=== PATIENT | female | born 1970 | race Caucasian/White ===

== ENCOUNTER → 2025-03-01 07:44 | Outpatient (REF) | payer BC, SELFPAY ==
[2025-03-01 08:42] LABS: Hematocrit 43.9 % (37.0-47.0); Hemoglobin 13.7 g/dL (12.0-16.0); Mean Corp Hgb Conc. 31.2 g/dL (33.0-37.0); Mean Corpuscular Volume 90.3 fL (81.0-99.0); Nucleated Red Blood Cells % 0 %; Platelet Count 249 10^3/uL (130-400); Red Cell Dist. Width 12.8 % (11.5-14.5)
[2025-03-01 09:01] LABS: ALT (SGPT) 26 U/L (0-35); AST (SGOT) 23 U/L (14-36); Albumin 4.5 g/dl (3.5-5.0); Alkaline Phosphatase 93 U/L (38-126); Blood Urea Nitrogen 16 mg/dl (7-17); Calcium 9.5 mg/dl (8.4-10.2); Carbon Dioxide 30 mmol/L (22-30); Chloride 103 mmol/L (98-107); Glucose 93 mg/dl (70-99); HDL Cholesterol 55 mg/dl; LDL Cholesterol, Calculated 163 mg/dl; Potassium 4.4 mmol/L (3.5-5.1); Sodium 137 mmol/L (135-145); Total Protein 7.7 g/dl (6.3-8.2); Very Low Density Lipoprotein 49 mg/dl (0-30); eGFR > 60.00
== END ==
LOC: REG 07:44
PROVIDERS: ATTENDING PHYSICIAN Internal Medicine
DX: Z00.00 Encounter for general adult medical examination without abnormal findings (principal); E78.1 Pure hyperglyceridemia
CPT/HCPCS: 36415; 80053; 80061; 84443; 85025